=== PATIENT | female | born 1995 | race American Indian/Alaskan Native ===

== ENCOUNTER 2016-08-23 10:48 | Emergency (ER) | payer MEDICAID ==
--- NOTE | 2016-08-23 15:52 | Emergency Department Report ---
HPI - General Chief Complaint: Urogenital-Female Time Seen by Provider: 08/23/16 15:25 - HPI HPI: Patient here complaining of face swelling like it's burning off and on times a couple months. Denies any redness or rash. She is also complaining she feels like something moving in her stomach 2 months. Last menstrual period was 2016. Denies any urinary urgency frequency or burning. Denies any vaginal discharge or bleeding. Denies any nausea or vomiting. Denies any back pain. Pain to face and abdomen is 6 out of 10. SHe denies taking any over-the- counter medication ED Past Medical Hx - Past Medical History Previous Medical History?: Yes Hx Hypertension: No Hx Congestive Heart Failure: No Hx Diabetes: No Hx Deep Vein Thrombosis: No Hx Renal Disease: No Hx Sickle Cell Disease: Yes (positive trait only) Hx Seizures: No Hx Asthma: No Hx COPD: No Hx HIV: No - Surgical History Past Surgical History?: No - Family History Family history: hypertension - Social History Smoking Status: Never Smoker Substance Use Type: None - Medications Home Medications: Home Medications Medication Instructions Recorded Confirmed Last Taken Type Ibuprofen [Motrin 800 MG tab] 800 mg PO Q6H PRN #30 tablet 09/04/14 Unknown Rx Fluticasone [Flonase] 1 spray NS QDAY #1 bottle 08/23/16 Unknown Rx Loratadine [Claritin] 10 mg PO DAILY #10 tablet 08/23/16 Unknown Rx Sulfamethoxazole/Trimethoprim 1 each PO BID #3 tablet 08/23/16 Unknown Rx [Bactrim DS TAB] ED Review of Systems ROS: Stated complaint: STOMACH PROBLEMS Other details as noted in HPI Comment: All other systems reviewed and negative Constitutional: denies: chills, fever Eyes: denies: eye discharge ENT: congestion, other (facial earning ). denies: ear pain, throat pain Respiratory: no symptoms reported Cardiovascular: denies: chest pain, palpitations, edema, syncope Gastrointestinal: abdominal pain. denies: nausea, vomiting, diarrhea, constipation, hematemesis, hematochezia Genitourinary: denies: dysuria, frequency, hematuria, discharge, abnormal menses , dyspareunia Musculoskeletal: denies: back pain, arthralgia Skin: denies: rash Neurological: denies: headache, weakness, numbness, paresthesias, confusion, abnormal gait, vertigo Physical Exam - Physical Exam Vital Signs: Vital Signs 08/23/16 12:22 Temperature 98.4 F Pulse Rate 56 L Respiratory 17 Rate Blood Pressure 123/56 O2 Sat by Pulse 100 Oximetry General: This is a 21-year-old female well-nourished well-developed in no acute distress. Physical Exam: Head: Normocephalic atraumatic Mouth: Moist, no pharyngeal exudate or erythema. Uvula is midline and oral airway is patent. No gingival enlargement or dental tenderness. No facial swelling. No peritonsillar abscesses. Abdomen: Soft, nontender to palpate in all quadrants, no guarding or rebound tenderness. No CVA tenderness bilaterally. Female: Externa vagina withour discharge , bleeding , rash or lesions. No vaginal discharge or bleeding. Cervix pink without discharge . Bimanual Exam without CMT. no adenexal tenderness Neck: Supple, no C-spine tenderness, no tracheal deviation. Nontender to palpate. no adenopathy Ears: Bilateral TMs congested without erythema .bilateral EAC without any redness swelling or drainage Eyes: Bilateral pupils equal and reactive to light, bilateral EOM intact. Bilateral sclera and conjunctiva without injection. Normal accommodation Nose: Mucosa moist, positive congestion no erythema. Positive clear drainage. maxillary and frontal sinus non-tender to palpate. Lungs: Clear to auscultate bilaterally no rhonchi wheezes or rales. Normal work of breathing extremity; No CCE. +2 pulses. No neurovascular compromise Cardiovascular: S1-S2, Bradycardia at 56,regular rhythm. No murmurs. Skin: clean Dry and intact no rash no lesions Psych: Normal mood and behavior ED Course Vital Signs 08/23/16 12:22 Temperature 98.4 F Pulse Rate 56 L Respiratory 17 Rate Blood Pressure 123/56 O2 Sat by Pulse 100 Oximetry - Reevaluation(s) Reevaluation #1: 08/23/16 16:58 Patient stable no distress. Awaiting abdominal CT ED Medical Decision Making - Lab Data Result diagrams: 08/23/16 16:06 08/23/16 16:06 Lab Results 08/23/16 08/23/16 08/23/16 Range/Units 16:06 16:06 16:06 WBC 7.1 (4.5-11.0) K/mm3 RBC 4.54 (3.65-5.03) M/mm3 Hgb 12.3 (10.1-14.3) gm/dl Hct 37.7 (30.3-42.9) % MCV 83 (79-97) fl MCH 27 L (28-32) pg MCHC 33 (30-34) % RDW 13.0 L (13.2-15.2) % Plt Count 280 (140-440) K/mm3 Lymph % (Auto) 41.7 H (13.4-35.0) % [place] % (Auto) 7.7 H (0.0-7.3) % Eos % (Auto) 3.1 (0.0-4.3) % Baso % (Auto) 0.4 (0.0-1.8) % Lymph # 3.0 (1.2-5.4) K/mm3 [place] # 0.5 (0.0-0.8) K/mm3 Eos # 0.2 (0.0-0.4) K/mm3 Baso # 0.0 (0.0-0.1) K/mm3 Seg Neutrophils % 47.1 (40.0-70.0) % Seg Neutrophils # 3.3 (1.8-7.7) K/mm3 Sodium 140 (137-145) mmol/L Potassium 4.0 (3.6-5.0) mmol/L Chloride 101.0 (98-107) mmol/L Carbon Dioxide 25 (22-30) mmol/L Anion Gap 18 mmol/L BUN 12 (7-17) mg/dL Creatinine 0.7 (0.7-1.2) mg/dL Estimated GFR > 60 ml/min BUN/Creatinine Ratio 17.14 % Glucose 83 (65-100) mg/dL Calcium 9.0 (8.4-10.2) mg/dL Total Bilirubin 0.3 (0.1-1.2) mg/dL AST 21 (5-40) units/L ALT 9 (7-56) units/L Alkaline Phosphatase 57 (35-129) units/L Total Protein 7.5 (6.3-8.2) g/dL Albumin 4.3 (3.9-5) g/dL Albumin/Globulin Ratio 1.3 % Amylase 77 (27-131) units/L Lipase 24 (13-60) units/L HCG, Qual Negative (Negative) Urine Color (Yellow) Urine Turbidity (Clear) Urine pH (5.0-7.0) Ur Specific [place] (1.003-1.030) Urine Protein (Negative) mg/dL Urine Glucose (UA) (Negative) mg/dL Urine Ketones (Negative) mg/dL Urine Blood (Negative) Urine Nitrite (Negative) Urine Bilirubin (Negative) Urine Urobilinogen (<2.0) mg/dL Ur Leukocyte Esterase (Negative) Urine WBC (Auto) (0.0-6.0) /HPF Urine RBC (Auto) (0.0-6.0) /HPF U Epithel Cells (Auto) (0-13.0) /HPF Urine Bacteria (Auto) (Negative) /HPF Urine Mucus /HPF Urine Sperm ([employer]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) /HPF 08/23/16 Range/Units 16:10 WBC (4.5-11.0) K/mm3 RBC (3.65-5.03) M/mm3 Hgb (10.1-14.3) gm/dl Hct (30.3-42.9) % MCV (79-97) fl MCH (28-32) pg MCHC (30-34) % RDW (13.2-15.2) % Plt Count (140-440) K/mm3 Lymph % (Auto) (13.4-35.0) % [place] % (Auto) (0.0-7.3) % Eos % (Auto) (0.0-4.3) % Baso % (Auto) (0.0-1.8) % Lymph # (1.2-5.4) K/mm3 [place] # (0.0-0.8) K/mm3 Eos # (0.0-0.4) K/mm3 Baso # (0.0-0.1) K/mm3 Seg Neutrophils % (40.0-70.0) % Seg Neutrophils # (1.8-7.7) K/mm3 Sodium (137-145) mmol/L Potassium (3.6-5.0) mmol/L Chloride (98-107) mmol/L Carbon Dioxide (22-30) mmol/L Anion Gap mmol/L BUN (7-17) mg/dL Creatinine (0.7-1.2) mg/dL Estimated GFR ml/min BUN/Creatinine Ratio % Glucose (65-100) mg/dL Calcium (8.4-10.2) mg/dL Total Bilirubin (0.1-1.2) mg/dL AST (5-40) units/L ALT (7-56) units/L Alkaline Phosphatase (35-129) units/L Total Protein (6.3-8.2) g/dL Albumin (3.9-5) g/dL Albumin/Globulin Ratio % Amylase (27-131) units/L Lipase (13-60) units/L HCG, Qual (Negative) Urine Color Yellow (Yellow) Urine Turbidity Slightly-cloudy (Clear) Urine pH 5.0 (5.0-7.0) Ur Specific [place] 1.029 (1.003-1.030) Urine Protein 30 mg/dl (Negative) mg/dL Urine Glucose (UA) Neg (Negative) mg/dL Urine Ketones 20 (Negative) mg/dL Urine Blood Neg (Negative) Urine Nitrite Neg (Negative) Urine Bilirubin Neg (Negative) Urine Urobilinogen < 2.0 (<2.0) mg/dL Ur Leukocyte Esterase Sm (Negative) Urine WBC (Auto) 10.0 H (0.0-6.0) /HPF Urine RBC (Auto) 3.0 (0.0-6.0) /HPF U Epithel Cells (Auto) 21.0 H (0-13.0) /HPF Urine Bacteria (Auto) 1+ (Negative) /HPF Urine Mucus 3+ /HPF Urine Sperm Few (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 This is nonspecific finding however may be seen in enteritis. Small amount of free fluid in the lower pelvis. 2 left ovarian cysts noted the largest is 2.2 cm. - Medical Decision Making ED course: Patient seen in emergency room for enteritis, left ovarian cyst and rhinitis. I discussed with patient her CT scan results, lab results and urine results with serum hCG which was negative. I discussed the patient that she'll need to follow-up with [facility] for ovarian cysts. I discussed with her that if her abdominal pain continues she will need to follow-up with GI doctor for enteritis. I also encouraged her to eat bland diet for the next 72 hours to include spicy food and acidic beverage. I discussed with her that her urine showed that she has some white blood cell, small bacteria and I will cover her for a urinary tract infection. I discussed with patient that her urine shows that she has some ketones which could be and if she is dehydrated so she'll need to increase her fluid intake. Patient was understanding of discharge diagnosis and treatment plan. Patient discharged home with prescription for Claritin, Flonase and Bactrim DS. Critical care attestation.: If time is entered above; I have spent that time in minutes in the direct care of this critically ill patient, excluding procedure time. ED Disposition Clinical Impression: Enteritis, Acute cystitis without hematuria, Ovarian cyst, left Abdominal pain Qualifiers: Abdominal location: lower abdomen, unspecified Qualified Code(s): R10.30 - Lower abdominal pain, unspecified Rhinitis Qualifiers: Rhinitis type: allergic Allergic rhinitis seasonality: unspecified seasonality Allergic rhinitis trigger: unspecified Qualified Code(s): J30.9 - Allergic rhinitis, unspecified Disposition: DISCHARGED TO HOME OR SELFCARE Is pt being admited?: No Does the pt Need Aspirin: No Condition: Stable Instructions: Abdominal Pain (ED), Ovarian Cyst (ED), Urinary Tract Infection in Women (ED) Additional Instructions: Your CT scan shows that you have some enteritis two-year small intestine. This means that you have some inflammation T his small intestine. Please avoid acidic and spicy food this will include any can soda. Please follow-up with [employer] if this continues. Please take antibiotic as prescribed. Urine shows that you are mildly dehydrated stated so you will need to drink plenty of fluid. You have 2 cyst on your left ovary so you'll need to follow-up with [facility]. This can also cause you have abdominal pain. Take Flonase and Claritin for allergic rhinitis. Prescriptions: Fluticasone [Flonase] 1 spray NS QDAY #1 bottle Loratadine [Claritin] 10 mg PO DAILY #10 tablet Sulfamethoxazole/Trimethoprim [Bactrim DS TAB] 1 each PO BID #3 tablet Referrals: MIGUEL MELTON [Other] - 2-3 Days [facility] [Provider Group] - 2-3 Days INA BECERRA MD [Staff Physician] - 2-3 Days Forms: Accompanied Note, Work/School Release Form(ED)
[2016-08-23 16:42] LABS: Alanine Aminotransferase 9 units/L (7-56); Albumin 4.3 g/dL (3.9-5); Albumin/Globulin Ratio 1.3 %; Alkaline Phosphatase 57 units/L (35-129); Amylase 77 units/L (27-131); Anion Gap 18 mmol/L; BUN/Creatinine Ratio 17.14; Bilirubin,Total 0.3 mg/dL (0.1-1.2); Blood Urea Nitrogen 12 mg/dL (7-17); Carbon Dioxide 25 mmol/L (22-30); Glucose 83 mg/dL (65-100); Lipase 24 units/L (13-60); Sodium 140 mmol/L (137-145); Total Protein 7.5 g/dL (6.3-8.2)
[2016-08-23 16:44] LABS: Bacteria,Urine 1+ /HPF (Negative); Bilirubin,Urine NEG (Negative); Blood,Urine NEG (Negative); Ketones,Urine 20 mg/dL (Negative); Leukocyte Esterase,Urine SM (Negative); Mucus,Urine 3+ /HPF; Nitrite,Urine NEG (Negative); Sperm,Urine FEW /HPF (NP); Urobilinogen,Urine < 2.0 mg/dL (<2.0)
[2016-08-23 16:48] LABS: Basophils % (Auto) 0.4 % (0.0-1.8); Eosinophils % (Auto) 3.1 % (0.0-4.3); Hematocrit 37.7 % (30.3-42.9); Hemoglobin 12.3 gm/dl (10.1-14.3); Mean Corpuscular HGB Conc 33 % (30-34); Mean Corpuscular Hemoglobin 27 pg (28-32); Mean Corpuscular Volume 83 fl (79-97); Platelet Count 280 K/mm3 (140-440); Red Blood Count 4.54 M/mm3 (3.65-5.03); White Blood Count 7.1 K/mm3 (4.5-11.0)
--- NOTE | 2016-08-23 17:56 | Cat Scan Report ---
FINAL REPORT EXAM: CT ABDOMEN PELVIS W CON HISTORY: abdominal pain TECHNIQUE: CT abdomen and pelvis with intravenous contrast PRIORS: None. FINDINGS: No acute abnormality identified in the lung bases. No focal abnormality identified within the liver parenchyma. The spleen demonstrates normal size and attenuation. No pancreatic abnormalities seen. The kidneys demonstrate symmetric contrast enhancement. No evidence of hydronephrosis. The adrenal glands are unremarkable Abdominal aorta is normal in caliber. There is mild prominence of central mesenteric and right lower quadrant lymph nodes this is a nonspecific finding but may be seen enteritis. No evidence of small bowel dilatation. Colon is nondistended. No pericolonic inflammatory change. Urinary bladder is unremarkable. Small amount of free fluid noted in the lower pelvis within the left ovary there are 2 cysts identified the largest is 2.2 x 1.8 centimeters. Central hypodensity noted in the uterus. IMPRESSION: Mild prominence of central mesenteric and right lower quadrant lymph nodes. This is a nonspecific finding however may be seen with enteritis Small amount of free fluid in the lower pelvis Two left ovarian cysts noted the largest 2.2 centimeters
[2016-08-23 19:01] VITALS: BP 121/60
== END 2016-08-23 18:59 | disposition home or self-care (01) ==
LOC: ED 10:48
DX: K52.9 Noninfective gastroenteritis and colitis, unspecified (principal); N30.00 Acute cystitis without hematuria; N83.202 Unspecified ovarian cyst, left side; J30.9 Allergic rhinitis, unspecified
CPT/HCPCS: 36415; 74177; 80053; 81001; 82150; 83690; 84703; 85025; 99284; Q9967